=== PATIENT | female | born 1975 ===

== ENCOUNTER 2017-10-10 | Emergency (ER) | payer OTHER ==
[~2017-10-10] VITALS: Ht 149.9 cm; Wt 65.8 kg
[~2017-10-10] MED LIST: CIPRO500 MG PO; VOL-TAB RX TAB1 EACH
[2017-10-10] MEDS ORDERED: ATIVAN1 M1 (00:25)
== END 2017-10-10 05:25 | disposition home or self-care (01) ==
LOC: ER
DX: N91.2 Amenorrhea, unspecified (principal); R10.2 Pelvic and perineal pain